=== PATIENT | male | born 1965 | race Caucasian/White ===

== ENCOUNTER → 2016-09-09 | Outpatient (REF) | payer OTHER ==
[2016-09-11 00:06] LABS: Lyme Disease IgG/IgM Antibodie <0.91 ISR (0.00-0.90); Lyme Disease IgM Ab Quantitati <0.80 index (0.00-0.79)
== END ==
LOC: M LAB REF 11:26
PROVIDERS: ATTEND Nurse Practitioner Family
DX: S80.861D Insect bite (nonvenomous), right lower leg, subsequent encounter (principal); R53.81 Other malaise

== ENCOUNTER → 2019-04-06 | Outpatient (REF) | payer BC ==
[2019-04-08 00:06] LABS: Lyme Disease IgG/IgM Antibodie <0.91 ISR (0.00-0.90); Lyme Disease IgM Ab Quantitati <0.80 index (0.00-0.79)
== END ==
LOC: M LAB REF 11:45
PROVIDERS: ATTEND Registered Nurse
DX: M13.0 Polyarthritis, unspecified (principal)

== ENCOUNTER → 2019-08-06 | Outpatient (CLI) | payer BC | LOC: M LABSMTC 13:47 | PROVIDERS: ATTEND Family Medicine | DX: Z11.59 Encounter for screening for other viral diseases (principal) | CPT/HCPCS: C9803; U0003 ==

== ENCOUNTER → 2020-08-29 | Outpatient (REF) | payer BC | LOC: M LAB REF 18:04 | PROVIDERS: ATTEND Dermatology | DX: C44.319 Basal cell carcinoma of skin of other parts of face (principal) ==

== ENCOUNTER → 2022-01-08 | Outpatient (REF) | payer BC | LOC: M LAB REF 16:54 | PROVIDERS: ATTEND Registered Nurse | DX: M13.0 Polyarthritis, unspecified (principal) ==